=== PATIENT | female | born 1965 ===

== ENCOUNTER 2021-10-26 11:44 | Outpatient (CLI) | payer BC | END 2021-10-26 11:45 | disposition home or self-care (01) | LOC: CSHLAB 11:44 | PROVIDERS: ATTEND Obstetrics & Gynecology | DX: Z01.812 Encounter for preprocedural laboratory examination (principal); Z20.822 Contact with and (suspected) exposure to COVID-19 | CPT/HCPCS: 84703; 85027; 86850; 86900; 86901; 87811 ==

== ENCOUNTER 2021-10-30 05:44 | Day surgery (SDC) | payer BC ==
[2021-10-26 10:26] VITALS: BMI 30.2
[2021-10-26 12:47] LABS: Hemoglobin 13.9 g/dL (12.0-15.5); Mean Corpuscular HGB CONC 32.1 g/dL (32.0-36.0); Mean Corpuscular Hemoglobin 25.5 pg (27.0-33.0); Mean Corpuscular Volume 79.4 fl (81.6-98.3); Mean Platelet Volume 11.5 fl (7.4-10.4); Platelet Count 242 10x3/uL (150-450); Red Blood Cell (RBC) Count 5.45 10x6/uL (3.90-5.03); White Blood Cell (WBC) Count 8.5 10x3/uL (3.5-10.5)
[2021-10-26 12:50] LABS: Pregs Control Background? CLEAR/WHITE (CLR/WHITE); Pregs Control Bar Appear? YES (CONTROL BAR)
[2021-10-26 12:54] LABS: BHCG - Serum Negative (NEGATIVE)
[2021-10-30] MEDS ORDERED: CeleCOXIB 100 MG CAP ONE (06:31)
[2021-10-30] MEDS ORDERED: Fentanyl 100 MCG/2 ML VIAL ONE (07:06)
[2021-10-30] MEDS ORDERED: PROPOFOL 20 ML ONE (07:06)
[2021-10-30] MEDS ORDERED: Midazolam HCl 2 mg/2 ml Vial ONE (07:11)
[2021-10-30] MEDS ORDERED: Ondansetron PF 4 MG/2 ML Vial ONE (07:12)
[2021-10-30] MEDS ORDERED: Lidocaine 1% PF 5 ML VIAL ONE (07:12)
[2021-10-30] MEDS ORDERED: Dexamethasone 4 mg/ml Vial ONE (07:12)
[2021-10-30] MEDS ORDERED: CEFAZOLIN 2 GM VIAL ONE (07:21)
[2021-10-30] MEDS ORDERED: Ketorolac Tromethamine 30 MG/ML VIAL ONE (07:57)
[2021-10-30] MEDS ORDERED: HYDROcodone/Acetaminophen 5/325 mg Tablet ONE (09:33)
== END 2021-10-30 10:30 | disposition home or self-care (01) ==
LOC: CSHSDC 05:44
PROVIDERS: ATTEND Obstetrics & Gynecology
PROC: 0UB98ZZ Excision of Uterus, Via Natural or Artificial Opening Endoscopic (ICD-10-PCS; principal; 2021-10-30)
DX: D25.0 Submucous leiomyoma of uterus (principal); N95.0 Postmenopausal bleeding; N72 Inflammatory disease of cervix uteri; N85.8 Other specified noninflammatory disorders of uterus; N84.1 Polyp of cervix uteri; Z20.822 Contact with and (suspected) exposure to COVID-19; Z79.899 Other long term (current) drug therapy; Z90.49 Acquired absence of other specified parts of digestive tract
CPT/HCPCS: 36415; 84703; 85027; 86850; 86900; 86901; 87811; 88305; J0690; J1100; J1885; J2250; J2405; J2704; J3010